=== PATIENT | female | born 1950 | race Caucasian/White ===

== ENCOUNTER 2024-05-11 14:32 | Outpatient (AMB) | payer MEDICARE, OTHER, SELFPAY ==
--- NOTE | 2024-05-11 14:37 | A.OFFPC_ITS ---
Vital Signs 05/11/24 14:51 Height 4 ft 11 in Weight 143 lb BMI 28.9 BP 130/76 Blood Pressure Location Lt brachial Position Sitting Respiration 14 Pulse 92 Pulse Source Pulse Oximeter Temp 98.2 F Temp Source Oral Pulse Oximetry (%) 97 Oxygen Delivery Method Room Air Intake Visit Reasons: LA[facility] from [facility] Intake Note: New patient visit [employer] Required: No Allergies amoxicillin [From Augmentin] Allergy (Severe, Verified 05/11/24 14:45) Burning red skin clavulanic acid [From Augmentin] Allergy (Severe, Verified 05/11/24 14:45) Burning red skin Penicillins Allergy (Severe, Verified 05/11/24 14:45) burning red skin sulfadiazine Allergy (Severe, Verified 05/11/24 14:45) red burning skin Tobacco use date assessed: 05/11/24 Fall risk assessment: 2 + Falls in past year Last assessed Fall Risk: 05/11/24 Dental Screening Dental Screen Date: 05/11/24 Did you have a dental visit in the last 12 months?: Yes Did you have a dental problem in the last 6 months where you did not have access to dental care?: No Was dental information given to patient?: Patient has dentist HPI HPI Comments History of Present Illness Details The patient is a 73-year-old female with past medical history hypertension, hyperlipidemia, GERD, osteoarthritis, recurrent UTI presenting for follow-up CV: On irbesartan, atorvastatin. Denies chest pain, headaches, vision changes 0A: Status post left total knee replacem ent with Dr. Limon-2013. She had a lower extremity DVT in 2013. Right total knee replacement 2021 GI: She is on prilosec daily. Prior EGD with ?brooks. colonoscopy 2022-advised 10 year repeat Urogyn: Follws with dr butt. axonic implant in 2020. continues vesicare, methanimine Td/Tdap 2023 Pneumonia 2023 Shingles 2019 ROS CONSTITUTIONAL: Denies weight loss, fever and chills. HEENT: Denies changes in vision and hearing. Frequent ear eaches RESPIRATORY: Denies SOB and cough. CV: Denies palpitations and CP GI: Denies abdominal pain, nausea, vomiting and diarrhea. : Denies dysuria and urinary frequency. MSK: Denies new myalgia and joint pain. SKIN: Denies rash and pruritus. NEUROLOGICAL: Denies headache PSYCHIATRIC: Denies recent changes in mood. PHYSICAL EXAM: GENERAL: Alert and oriented x 3. NAD EYES: EOMI. Anicteric. HENT: Moist mucous membranes. No scleral icterus. No cervical lymphadenopathy. LUNGS: Clear to auscultation bilaterally. CARDIOVASCULAR: Regular rate and rhythm. No murmur. No JVD. ABDOMEN: Soft, non-tender +bs EXTREMITIES: No edema. Non-tender. SKIN: No rashes or lesions. Warm. NEUROLOGIC: No focal neurological deficits. CN II-XII grossly intact PSYCHIATRIC: Cooperative. Appropriate mood and affect [facility] Medical History Hx of mammogram Osteoarthritis Tennis elbow Recurrent UTI Hypertension Hyperlipidemia History of DVT in adulthood GERD (gastroesophageal reflux disease) Elevated glucose Surgical History History of endoscopy History of colonoscopy Hx of knee surgery History of bladder surgery History of hysterectomy Family History Father Heart attack Brother Heart attack Brother Heart disease (organic) Brother Heart disease (organic) Mother Heart disease (organic) Alzheimer dementia Sister Alzheimer dementia Other Dementia Social History Housing: House Patient Tobacco Use Status: Never used Tobacco e-Cigarette/Vaping Use: Never Used Second Hand Smoke Exposure: No service: No 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 How often do you have a drink containing alcohol?: Monthly or less 2. How many drinks containing alcohol do you have on a typical day when you are drinking?: 1 or 2 3. How often do you have six or more drinks on one occasion?: Never Total Score: 1 Physical exam (Primary Care) Vital Signs: Last Vital Signs Temp 98.2 F 05/11/24 14:51 Pulse 92 05/11/24 14:51 Resp 14 05/11/24 14:51 BP 130/76 05/11/24 14:51 Pulse Ox 97 05/11/24 14:51 Oxygen Delivery Method Room Air 05/11/24 14:51 BMI result Body Mass Index 28.9 Tobacco/Smoking Status: Tobacco use Status Tobacco use date assessed 05/11/24 05/11/24 14:55 Patient Tobacco Use Status Never used Tobacco 05/11/24 14:55 e-Cigarette/Vaping Use Never Used 05/11/24 14:55 Assessment and Plan Assessment & Plan (1) Elevated glucose: Code(s): R73.09 - Other abnormal glucose Plan: monitor labs (2) Hypertension: Code(s): I10 - Essential (primary) hypertension Qualifiers: Hypertension type: primary hypertension Qualified Code(s): I10 - Ess ential (primary) hypertension Plan: blood pressure adequately controlled on current medications Orders: Orders Complete Blood Count Auto Diff 05/11/24 E78.5 - Hyperlipidemia, unspecified, I10 - Essential (primary) hypertension, R73.09 - Other abnormal glucose Comprehensive Met. Panel 05/11/24 E78.5 - Hyperlipidemia, unspecified, I10 - Essential (primary) hypertension, R73.09 - Other abnormal glucose Lipid Panel 05/11/24 E78.5 - Hyperlipidemia, unspecified, I10 - Essential (primary) hypertension, R73.09 - Other abnormal glucose Hemoglobin A1c 05/11/24 E78.5 - Hyperlipidemia, unspecified, I10 - Essential (primary) hypertension, R73.09 - Other abnormal glucose XR knee LT 3V 05/11/24 M25.562 - Pain in left knee, Z96.659 - Presence of unspecified artificial knee joint Medications: New atorvastatin 20 mg PO DAILY 90 tabs 3RF irbesartan 150 mg PO DAILY 90 tabs 3RF 90 days omeprazole 20 mg PO DAILY 90 caps 3RF Coding Level of Care Code Est Pt Level 5 (26287) Diagnoses Elevated glucose R73.09 Primary hypertension I10 Hypertension type: primary hypertension
[2024-05-11 14:51] VITALS: BP 130/76; PULSE 92; RESP 14; TEMP 36.8; O2SAT 97; BMI 28.9
== END 2024-05-11 15:40 | disposition home or self-care (01) ==
PROVIDERS: PCP Internal Medicine; Visit Provider Internal Medicine
DX: R73.09 Other abnormal glucose (principal); I10 Essential (primary) hypertension
CPT/HCPCS: 99214

== ENCOUNTER 2024-05-11 15:33 | Outpatient (REF) | payer MEDICARE, OTHER, SELFPAY ==
[2024-05-11 17:50] LABS: MANUAL DIFF FLAG NO
[2024-05-11 17:58] LABS: Basophils Percent Auto 0.5 % (0-2); Eosinophils Percent Auto 0.5 % (0-4); Hematocrit 43.2 % (37.0-47.0); Hemoglobin 14.2 g/dl (12.0-16.0); Imm Gran Abs Auto 0.01 X10*3/uL (0.00-0.03); Imm Gran Pct Auto 0.2 % (0.0-0.4); Lymphocytes Absolute Auto 2.4 X10*3/uL (1.2-4.9); Lymphocytes Percent Auto 36.8 % (20-40); Mean Corpuscular HGB Conc 32.9 g/dl (31.0-35.0); Mean Corpuscular Hemoglobin 29.2 pg (27.0-33.0); Mean Corpuscular Volume 88.9 fL (80.0-98.0); Monocytes Absolute Auto 0.5 X10*3/uL (0.1-1.2); Monocytes Percent Auto 7.7 % (2-11); Neutrophils Absolute Auto 3.6 x10*3/uL (2.0-8.3); Neutrophils Percent Auto 54.3 % (45-73); Platelet Count 310 X10*3/uL (160-400); Red Blood Count 4.86 X10*6/uL (4.20-5.50); Red Cell Distribution Width 13.2 % (11.0-16.0); White Blood Count 6.5 X10*3/uL (4.8-10.8)
[2024-05-11 18:07] LABS: Alanine Aminotransferase 22 U/L (0-31); Albumin Level 4.4 g/dL (3.5-5.0); Alkaline Phosphatase 73 U/L (39-117); Anion Gap 12 (12-20); Aspartate Amino Transferase 19 U/L (5-31); Bilirubin Total 0.2 mg/dL (0.0-1.0); Blood Urea Nitrogen 24 mg/dL (9-16); Calcium 10.2 mg/dL (8.4-10.2); Carbon Dioxide 30 mmol/L (22-29); Chloride 106 mmol/L (96-108); Cholesterol 210 mg/dL (<200); Estimated Glomerular Filt Rate > 60; Glucose Random 109 mg/dL (60-115); HDL Cholesterol 75 mg/dL (>40); LDL Cholesterol Calculated 115 mg/dL (<100); Sodium 144 mmol/L (135-145); Total Protein 7.1 g/dL (6.5-8.0); Triglycerides 102 mg/dL (<150)
[2024-05-11 18:19] LABS: Estimated Average Glucose 111 mg/dL; Hemoglobin A1c % 5.5 % (<6.0)
== END 2024-05-11 15:34 | disposition home or self-care (01) ==
LOC: HO.WFDLDS 15:33
PROVIDERS: Visit Provider Internal Medicine
DX: I10 Essential (primary) hypertension (principal); E78.5 Hyperlipidemia, unspecified; R73.09 Other abnormal glucose
CPT/HCPCS: 36415; 80053; 80061; 83036; 85025

== ENCOUNTER 2024-05-14 08:42 | Outpatient (REF) | payer MEDICARE, OTHER, SELFPAY ==
--- NOTE | ~2024-05-14 | XR_ITS ---
EXAMINATION: XR KNEE, LEFT CLINICAL INFORMATION: Left knee pain. COMPARISON: None available. TECHNIQUE: AP, sunrise, and lateral views of the left knee. FINDINGS: Total left knee arthroplasty. No hardware fracture. No perihardware lucency to suggest loosening or infection. No osseous fracture. No concerning lytic or blastic osseous lesion. No abnormal soft tissue calcification. No significant joint effusion. XR/XR knee LT 3V IMPRESSION: Total left knee arthroplasty without evidence of complication.
== END 2024-05-14 08:43 | disposition home or self-care (01) ==
LOC: HO.XRAY 08:42
PROVIDERS: PCP Internal Medicine; Visit Provider Internal Medicine
DX: T84.84XA Pain due to internal orthopedic prosthetic devices, implants and grafts, initial encounter (principal); Z96.652 Presence of left artificial knee joint
CPT/HCPCS: 73562

== ENCOUNTER 2024-11-23 08:23 | Outpatient (AMB) | payer MEDICARE, SELFPAY ==
--- NOTE | 2024-11-23 08:32 | A.OFFPC_ITS ---
Vital Signs 11/23/24 08:37 Height 4 ft 11 in Weight 152 lb 8 oz BMI 30.8 BP 110/76 Blood Pressure Location Rt brachial Position Sitting Respiration 14 Pulse 90 Pulse Source Pulse Oximeter Pulse Oximetry (%) 98 Oxygen Delivery Method Room Air Intake Visit Reasons: AWV/physical exam Intake Note: Medical wellness visit Personal Lines Agent Required: No Allergies amoxicillin [From Augmentin] Allergy (Severe, Verified 11/23/24 08:35) Burning red skin clavulanic acid [From Augmentin] Allergy (Severe, Verified 11/23/24 08:35) Burning red skin Penicillins Allergy (Severe, Verified 11/23/24 08:35) burning red skin sulfadiazine Allergy (Severe, Verified 11/23/24 08:35) red burning skin Medication List - Last Reconciled 11/23/24 by Michelle Pendleton MD aspirin 81 mg PO DAILY atorvastatin 20 mg PO DAILY calcium carbonate 1,200 mg PO DAILY irbesartan 150 mg PO DAILY 90 days methenamine hippurate 1 g PO DAILY multivitamin 1 tab PO DAILY omega [id number] oil 1,000 (120-180) mg (Fish Oil) 1 cap PO DAILY omeprazole 20 mg PO DAILY solifenacin 10 mg PO DAILY vibegron (Gemtesa) 75 mg PO DAILY Tobacco use date assessed: 05/11/24 Dental Screening Dental Screen Date: 05/11/24 HPI HPI Comments History of Present Illness Details The patient is a 73-year-old female with past medical history hypertension, hyperlipidemia, GERD, osteoarthritis, recurrent UTI presenting for AWV CV: On irbesartan, atorvastatin. Blood pressure is well controlled. Denies chest pain, headaches, vision changes 0A: Status post left total knee replacem ent with Dr. Limon-2013. She had a lower extremity DVT in 2013. Right total knee replacement 2021. Feeling well. GI: She is on prilosec daily. Prior EGD with ?brooks. colonoscopy 2022-advised 10 year repeat Urogyn: Follws with Dr butt. axonic implant in 2020. continues vesicare, methanimine. Appt in January. Td/Tdap 2023 Pneumonia 2023 Shingles 2018 Mammogram: scheduled this week 11/25/202411/29 memory HRA reviewed Care team updated Medications reconciled Negative fall. Negative depression ROS CONSTITUTIONAL: Denies weight loss, fever and chills. HEENT: Denies changes in vision and hearing. Frequent ear eaches RESPIRATORY: Denies SOB and cough. CV: Denies palpitations and CP GI: Denies abdominal pain, nausea, vomiting and diarrhea. : Denies dysuria and urinary frequency. MSK: Denies new myalgia and joint pain. SKIN: Denies rash and pruritus. NEUROLOGICAL: Denies headache PSYCHIATRIC: Denies recent changes in mood. PHYSICAL EXAM: GENERAL: Alert and oriented x 3. NAD EYES: EOMI. Anicteric. HENT: Moist mucous membranes. No scleral icterus. No cervical lymphadenopathy. LUNGS: Clear to auscultation bilaterally. CARDIOVASCULAR: Regular rate and rhythm. No murmur. No JVD. ABDOMEN: Soft, non-tender +bs EXTREMITIES: No edema. Non-tender. SKIN: No rashes or lesions. Warm. NEUROLOGIC: No focal neurological deficits. CN II-XII grossly intact PSYCHIATRIC: Cooperative. Appropriate mood and affect [facility] Medical History Hx of mammogram Osteoarthritis Tennis elbow Recurrent UTI Hypertension Hyperlipidemia History of DVT in adulthood GERD (gastroesophageal reflux disease) Elevated glucose Surgical History History of endoscopy History of colonoscopy Hx of knee surgery History of bladder surgery History of hysterectomy Family History Father Heart attack Alcoholism Brother Heart attack Alcoholism Brother Heart disease (organic) Brother Heart disease (organic) Mother Heart disease (organic) Alzheimer dementia Sister Alzheimer dementia Other Dementia FH: mental illness Substance abuse Social History (Updated 11/23/24 @ 08:53 by Lilian Granger CMA) Housing: House Patient Tobacco Use Status: Never used Tobacco e-Cigarette/Vaping Use: Never Used Second Hand Smoke Exposure: No Use of substances other than those prescribed or required for medical reasons: No service: No 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 Cognitive needs: No Hearing needs: No Vision needs: No Physical exam (Primary Care) Vital Signs: Last Vital Signs Pulse 90 11/23/24 08:37 Resp 14 11/23/24 08:37 BP 110/76 11/23/24 08:37 Pulse Ox 98 11/23/24 08:37 Oxygen Delivery Method Room Air 11/23/24 08:37 BMI result Body Mass Index 30.8 Tobacco/Smoking Status: Tobacco use Status Tobacco use date assessed 05/11/24 11/23/24 08:34 Patient Tobacco Use Status Never used Tobacco 11/23/24 08:53 e-Cigarette/Vaping Use Never Used 11/23/24 08:53 Coding Level of Care Code Est Pt Level 4 (72571) Diagnoses Annual wellness visit Z00.00 Primary hypertension I10 Hypertension type: primary hypertension Assessment & Plan Assessment & Plan (1) Annual wellness visit: Code(s): Z00.00 - Encounter for general adult medical examination without abnormal findings Category: Medical Plan: HRA reviewed -see HPI (2) Hypertension: Code(s): I10 - Essential (primary) hypertension Category: Medical Qualifiers: Hypertension type: primary hypertension Qualified Code(s): I10 - Essential (primary) hypertension Plan: well controlled on current medication. Low salt diet. Continue daily exercise. Orders: Orders Comprehensive Met. Panel Today E78.5 - Hyperlipidemia, unspecified, I10 - Essential (primary) hypertension, R73.09 - Other abnormal glucose, Z00.00 - Encounter for general adult medical examination without abnormal findings TSH reflex Free T4 Today E78.5 - Hyperlipidemia, unspecified, I10 - Essential (primary) hypertension, R73.09 - Other abnormal glucose, Z00.00 - Encounter for general adult medical examination without abnormal findings Complete Blood Count Auto Diff Today E78.5 - Hyperlipidemia, unspecified, I10 - Essential (primary) hypertension, R73.09 - Other abnormal glucose, Z00.00 - Encounter for general adult medical examination without abnormal findings Lipid Panel Today E78.5 - Hyperlipidemia, unspecified, I10 - Essential (primary) hypertension, R73.09 - Other abnormal glucose, Z00.00 - Encounter for general adult medical examination without abnormal findings Hemoglobin A1c Today R73.09 - Other abnormal glucose Vitamin B12 and Folate Today R20.0 - Anesthesia of skin
[2024-11-23 08:37] VITALS: BP 110/76; PULSE 90; RESP 14; O2SAT 98; BMI 30.8
--- OUTSIDE RECORDS SUMMARY | 2024-11-23 08:45 | XMS_ITS | Data Portability ---
Author Organization [facility], [address] Address [address] [place] [address] Assessment No assessment recorded. Plan of Treatment Reminders Order Date Submit Date Provider Last Modified By Organization Details Last Modified Time Details Appointments None recorded. Lab None recorded. Referral otolaryngol ogist referral - dizziness with ear pain, feels like crackling sound inside . hx of frequent ear infections 2023 024 [address] Petar Esquivel MD, [address] [facility], [facility] [address], [place], [address], 15:43:30 Procedures None recorded. Surgeries None recorded. Imaging None recorded. Medication Orders Zithromax Z-Wyatt 250 mg tablet 2023 024 [id number], [address] [place], [address], 15:38:26 Patient TargetsNo targets recorded. 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 hx of frequent ear infections Referring Physician: Janett Yeh, Urgent Care, Encounter Date: 02/11/2024 Problems Name Problem SNOMED Code Status Onset Date Resolution Date Notes Provider Name and Address Organization Details Recorded Time Hypertensive disorder 31708130 Active 2023 Meghna del angel, PA - [facility] 4 14:20:38 Incontinence 89469158 Active 2023 Meghna Bernal null, PA - [facility] 4 14:20:43 Hypercholester olemia 74873268 Active 2023 Meghna Bernal null, PA - [facility] 4 14:21:01 Acute left otitis media 280230973 Active 2023 Janett Yeh NP [address] , [place], [address], PA - [facility] 4 15:33:10 Eustachian tube disorder 26185265 Active 2023 Janett Yeh NP [address] [place], [address], PA - [facility] 4 15:40:33 Problem Notes None recorded. Procedures Surgical History Date Name Laterality Status Provider Name and Address Organization Details Recorded Time hysterectomy completed Meghna Richmondnton PA - [facility] 02/11/2024 14:22:35 total knee replacement completed Meghna Richmondnton PA - [facility] 02/11/2024 14:22:45 procedure on urinary bladder completed Meghna Richmondnton PA - [facility] 02/11/2024 14:22:51 procedure on elbow completed Meghnadariel Richmondnton PA - [facility] 02/11/2024 14:23:00 Imaging Results None recorded. Procedure Notes None recorded. Medical Equipment None Reported. Allergies Allergen ID Allergen Name Allergen Category Reaction Reaction Severity Criticality Documentation Date Start Date Code Code System Note Provider Name and Address Organization Details Recorded Time 206006 amoxicill in medicatio n rash Not available Not available 02/11/2024 723 RxNorm Meghna del angel, PA - [facility] 4 14:15:24 [id number] Substance with sulfonami de structure and antibacte rial mechanism of action (substanc e) medicatio n rash Not available Not available 02/11/2024 56912 8003 SNOMED VARINDER Ordonez [facility] 4 14:16:10 Medications Name Sig Start Date Stop Date Status Note LastModified by Organization Details LastModified Time atorvastatin 20 mg tablet Take 1 tablet every day by oral route. active Not Available Not Available No t Available Zithromax Z-Wyatt 250 mg tablet TAKE 2 TABLETS (500 MG) BY ORAL ROUTE ONCE DAILY FOR 1 DAY THEN 1 TABLET (250 MG) BY ORAL ROUTE ONCE DAILY FOR 4 DAYS 2023 active Not Available Not Available Not Avai lable Baby Aspirin 81 mg chewable tablet Chew 1 tablet every day by oral route. active Not Available Not Available No t Available irbesartan 150 mg tablet Take 1 tablet every day by oral route. active Not Available Not Available No t Available omeprazole 20 mg oral packet Take by oral route. active Not Available Not Available No t Available solifenacin 10 mg tablet Take 1 tablet every day by oral route. active Not Available Not Available No t Available Vitamin C active Not Available Not Jessenia ilable Not Available methenamine active Not Available Not A vailable Not Available Vitamin D3 active Not Available Not Av ailable Not Available Multi Vitamin active Not Available Not Available Not Available calcium 1,000 mg (as calcium carbonate 2,500 mg) effervescent tablet Take by oral route. active Not Available Not Available No t Available Vitals Date Recorded Body height Body mass index (BMI) Body weight Respiratory rate Pain severity - 0-10 verbal numeric rating [Score] - Reported Heart rate Oxygen saturation Oxygen saturation in Arterial blood by Pulse oximetry Body temperature Systolic blood pressure Diastolic blood pressure Provider Name and Address Organization Details Last Updated DateTime 4 149.86 cm 29.3 kg/m2 77341.8 9 g 18 /min 8 77 /min 97 % 97 % 97.4 [degF] 132 mm[Hg] 83 mm[Hg] Meghna Pitts [facility] 4 14:25:22 Social History Question Answer Notes LastModified by Organizat ion Details LastModified Time Tobacco Smoking Status Never Smoker Meghna del angel PA - [facility] 02/11/2024 14:21:56 What Is Your Level Of Alcohol Consumption? Occasional [email or web address] Information not available 02/11/2024 How Many Times Per Week Do You Consume Alcohol? Less Than 1 Time Per Week [email or web address] Information not available 02/11/2024 Are You Currently Employed? Yes [email or web address] Information not available 02/11/2024 What Is The Highest Grade Or Level Of School You Have Completed Or The Highest Degree You Have Received? [id number] [email or web address] Information not available 02/11/2024 Have You Had A Flu Shot This Season? Yes [email or web address] Information not available 02/11/2024 If No, Would You Like A Flu Shot Today? No [email or web address] Information not available 02/11/2024 Have You Had Direct Contact, Or Contact During Intimacy, With Monkeypox Rash, Scabs, Or Body Fluids From A Person With Monkeypox? No Information not available 02/11/2024 What Was The Date Of Your Most Recent Tobacco Screening? 02/11/2024 [email or web address] Information not available 02/11/2024 Do You Use Any Illicit Or Recreational Drugs? No Information not available 02/11/2024 Have You Recently Traveled Abroad? Yes [place] [email or web address] Information not available 02/11/2024 Are You Currently In School? No [email or web address] Information not available 02/11/2024 Do You Or Have You Ever Used Any Other Forms Of Tobacco Or Nicotine? No [email or web address] Information not available 02/11/2024 Sex: Unknown Functional Status None recorded. Mental Status None recorded. Family History Nothing Reported. Medical History No medical history recorded. Gynecological HistoryNo gynecological history recorded. Obstetrics History GPAL:G 0 P 0 0 0 0 Immunizations Vaccine Type Date Status Note Provider Nam e and Address Organization Details Recorded Time zoster recombinant 9 completed Meghna del angel PA - [facility] 02/11/2024 14:15:09 zoster recombinant 9 completed Meghna del angel PA - [facility] 02/11/2024 14:15:09 Influenza, high-dose, quadrivalent, PF 0 completed Meghna Bernal null, PA - [facility] 02/11/2024 14:15:09 Influenza, high-dose, quadrivalent, PF 1 completed Meghna Bernal null, PA - [facility] 02/11/2024 14:15:09 Influenza, high-dose, quadrivalent, PF 3 completed Meghna Bernal null, PA - [facility] 02/11/2024 14:15:09 Influenza, high-dose, quadrivalent, PF 2 completed Meghna Bernal null, PA - [facility] 02/11/2024 14:15:09 COVID-19, mRNA, LNP-S, PF, 100 mcg/0.5mL dose or 50 mcg/0.25mL dose 1 completed Meghna Bernal null, PA - [facility] 02/11/2024 14:15:09 COVID-19, mRNA, LNP-S, PF, 100 mcg/0.5mL dose or 50 mcg/0.25mL dose 1 completed Meghna Bernal null, PA - [facility] 02/11/2024 14:15:09 COVID-19, mRNA, LNP-S, PF, 100 mcg/0.5mL dose or 50 mcg/0.25mL dose 1 completed Meghna Bernal null, PA - [facility] 02/11/2024 14:15:09 Pneumococcal conjugate PCV20, polysaccharide [id number] conjugate, adjuvant, PF 4 completed Meghna Bernal null, PA - [facility] 02/11/2024 14:15:09 Tdap 4 completed Meghna Bernal null, PA - [facility] 02/11/2024 14:15:09 Pneumococcal conjugate PCV 13 8 completed Meghna Bernal null, PA - [facility] 02/11/2024 14:15:09 Influenza, high-dose, trivalent, PF 7 completed Meghna Richmondnton mer, PA - [facility] 02/11/2024 14:15:09 Influenza, high-dose, trivalent, PF 8 completed Meghna del angel, PA - [facility] 02/11/2024 14:15:09 Past Encounters Encounter ID Performer Location Encounter Start Date Encounter Closed Date Diagnosis/Indication Diagnosis SNOMED-CT Code Diagnosis ICD10 Code Diagnosis Note [id number] [address] [facility] [address] [facility] [place] [address] 11/27/2021 12:40:41 11/27/2021 14:25:05 [id number] Janett Yeh, ASPEN [address] [facility] [address] [facility] [place] [address] 02/11/2024 12:17:52 02/11/2024 15:40:18 Acute left otitis media 494539250 H66.92 Based on your Presentati on, Exam, and Lab Testing you are being diagnosed with otitis media I am going to prescribe you and antibiotic to cover this infection. Please be sure to complete the full course of this antibiotic to prevent antibiotic resistance . It is also important to complete this antibiotic because this infection is what causes Scarlet Fever/Rheu matic Heart Disease. Antibiotic s will typically take 4-5 days to start to work with symptom improvemen t. The following are my other recommenda tions to help with symptoms and is important for this diagnosis: 1. Take Ibuprofen or Tylenol if you do not have any allergies to these medication s. If you take a blood thinner you should not take NSAIDS like Ibuprofen. These medication will help with the inflammati on in your respirator y tract which should help the cough. (I would alternate between Tylenol 650 mg and your Ibuprofen 600 mg every 4 hours)2. Do not take any Cold Medication s that have a Decongesta nt in it - this will dry out your throat and make the sore throat worse.3. Drinking Hot Tea with honey can help coat and soothe your throat. I would be seen again if you develop any of the following symptoms.1 . Fever > 101.02. Stiff neck - where you can't turn your neck3. Trouble swallowing your saliva - drooling4. Swelling of a lymph node in your throat that is painful to touch5. Difficulty breathing6 . Severe Headache Thank you for using [facility] today, please feel free to contact our office if you have any questions or concerns. Eustachian tube disorder [id number] H69.92 Try a simple exercise to help open blocked tubes. Close your mouth, hold your nose, and gently blow as if you are blowing your nose. Yawning and chewing gum also may help. You may hear or feel a pop when the tubes open.To ease ear pain, apply a warm washcloth or a heating pad set on low. There may be some drainage from the ear when the heat melts earwax. Put a cloth between the heat source and your skin.If your doctor prescribed antibiotic s, take them as directed. Do not stop taking them just because you feel better. You need to take the full course of antibiotic s.Be safe with medicines. Depending on the cause of the problem, your doctor may recommend over-the-c ounter medicine. For example, adults may try decongesta nts for cold symptoms or nasal spray steroids for allergies. Follow the instructio ns carefully. Be careful with cough and cold medicines. Don't give them to children younger than 6, because they don't work for children that age and can even be harmful. For children 6 and older, always follow all the instructio ns carefully. Make sure you know how much medicine to give and how long to use it. And use the dosing device if one is included.W hen should you call for help?Call your doctor now or seek immediate medical care if:You develop sudden, complete hearing loss.You have severe pain or feel dizzy.You have new or increasing pus or blood draining from your ear.You have redness, swelling, or pain around or behind the ear. Health Concerns Section Related Observation LastModified by Organization Detai ls LastModified Time None Recorded Concern Status LastModified by Organization Details LastModified Time None Recorded Advance Directives Directive None Recorded Payers Encounter Date Sequence Insurance Name Policy Number Policy Medeiros Covered Member ID Medeiros Member ID Guarantor Name 11/27/2021 1 [place] [employer] Irina Edward [id number] Irina Edward 11/27/2021 2 [facility] [id number] Jorge Edward [id number] Irina Harding Wagner 02/11/2024 1 [place] [facility] Irina Edward [id number] Irina Harding Wagner 02/11/2024 2 [facility] [id number] 2 Jorge Lindo Wagner [id number] Irina Funezonte Notes Date Note Type Note Provider Name and Address Organization Details Recorded Time 4 text/html Ear problem UCReported bypatient.source of patient informationInformation obtained from patient; Patient arrived at Urgent Care ambulatory Location:left Quality:pain;clogged Severity:moderate Duration:started ; 3 days Context:no recent swimming/water in ear; no recent air travel Modifying Factors:does not hurt to lie on, or pull on ear; does not hurt to chew Associated Symptoms:popping noise in the ears Pt complains of dizziness x 2 weeks. Pt also complaining of intermittent left ear pain x 3 days Janett Yeh NP [address] [facility] [place], [address], PA - [facility] 03/15/2024 10:32:56 OBGyn Episode No OBEpisode recorded.
== END 2024-11-23 09:06 | disposition home or self-care (01) ==
PROVIDERS: PCP Internal Medicine; Visit Provider Internal Medicine
DX: Z00.00 Encounter for general adult medical examination without abnormal findings (principal); I10 Essential (primary) hypertension

== ENCOUNTER 2024-11-23 09:08 | Outpatient (REF) | payer MEDICARE, SELFPAY ==
[2024-11-23 11:30] LABS: MANUAL DIFF FLAG NO
[2024-11-23 11:34] LABS: Basophils Percent Auto 0.7 % (0-2); Eosinophils Absolute Auto 0.1 X10*3/uL (0.0-0.4); Eosinophils Percent Auto 0.8 % (0-4); Hematocrit 43.3 % (37.0-47.0); Hemoglobin 14.5 g/dl (12.0-16.0); Imm Gran Abs Auto 0.01 X10*3/uL (0.00-0.03); Imm Gran Pct Auto 0.2 % (0.0-0.4); Lymphocytes Absolute Auto 2.6 X10*3/uL (1.2-4.9); Lymphocytes Percent Auto 43.4 % (20-40); Mean Corpuscular HGB Conc 33.5 g/dl (31.0-35.0); Mean Corpuscular Hemoglobin 29.4 pg (27.0-33.0); Mean Corpuscular Volume 87.8 fL (80.0-98.0); Mean Platelet Volume 10.5 fL (9.4-12.3); Monocytes Absolute Auto 0.5 X10*3/uL (0.1-1.2); Monocytes Percent Auto 8.8 % (2-11); Neutrophils Absolute Auto 2.7 x10*3/uL (2.0-8.3); Neutrophils Percent Auto 46.1 % (45-73); Platelet Count 295 X10*3/uL (160-400); Red Blood Count 4.93 X10*6/uL (4.20-5.50); Red Cell Distribution Width 12.9 % (11.0-16.0); White Blood Count 5.9 X10*3/uL (4.8-10.8)
[2024-11-23 12:04] LABS: Estimated Average Glucose 117 mg/dL; Hemoglobin A1C 148.1789 umol/L; Hemoglobin A1c % 5.7 % (<6.0); Total Hemoglobin (HGBA1C) 3783.8514 umol/L
[2024-11-23 12:19] LABS: Alanine Aminotransferase 38 U/L (0-31); Albumin Level 4.3 g/dL (3.5-5.0); Alkaline Phosphatase 79 U/L (39-117); Anion Gap 11 (12-20); Aspartate Amino Transferase 28 U/L (5-31); Bilirubin Total 0.3 mg/dL (0.0-1.0); Blood Urea Nitrogen 17 mg/dL (9-16); Calcium 9.9 mg/dL (8.4-10.2); Carbon Dioxide 28 mmol/L (22-29); Chloride 108 mmol/L (96-108); Cholesterol 193 mg/dL (<200); Estimated Glomerular Filt Rate > 60; Glucose Random 107 mg/dL (60-115); HDL Cholesterol 72 mg/dL (>40); LDL Cholesterol Calculated 86 mg/dL (<100); Potassium 4.2 mmol/L (3.3-5.1); Sodium 143 mmol/L (135-145); Total Protein 7.3 g/dL (6.5-8.0); Triglycerides 177 mg/dL (<150)
[2024-11-23 12:35] LABS: TSH reflex Free T4 2.18 uIU/mL (0.32-4.0)
[2024-11-23 12:41] LABS: Folate > 20.0 ng/mL (> or = 4.0); Vitamin B12 794 pg/mL (200-900)
== END 2024-11-23 09:09 | disposition home or self-care (01) ==
LOC: HO.WFDLDS 09:08
PROVIDERS: Visit Provider Internal Medicine
DX: Z00.00 Encounter for general adult medical examination without abnormal findings (principal); R73.09 Other abnormal glucose; E78.5 Hyperlipidemia, unspecified; I10 Essential (primary) hypertension; R20.0 Anesthesia of skin
CPT/HCPCS: 36415; 80053; 80061; 82607; 82746; 83036; 84443; 85025; 99212

== ENCOUNTER 2025-05-23 13:57 | Outpatient (AMB) | payer MEDICARE, OTHER, SELFPAY ==
--- NOTE | 2025-05-23 14:03 | A.OFFPC_ITS ---
Vital Signs 05/23/25 14:08 Height 4 ft 11 in Weight 146 lb 6 oz BMI 29.6 BP 130/74 Blood Pressure Location Lt brachial Position Sitting Respiration 14 Pulse 81 Pulse Source Pulse Oximeter Pulse Oximetry (%) 97 Oxygen Delivery Method Room Air Intake Visit Reasons: bp follow up Intake Note: Blood pressure follow up Deicer Tester Required: No Allergies amoxicillin (From Augmentin) Allergy (Severe, Verified 05/23/25 14:06) Burning red skin clavulanic acid (From Augmentin) Allergy (Severe, Verified 05/23/25 14:06) Burning red skin Penicillins Allergy (Severe, Verified 05/23/25 14:06) burning red skin sulfadiazine Allergy (Severe, Verified 05/23/25 14:06) red burning skin Tobacco use date assessed: 05/23/25 Fall risk assessment: No Falls in past year Last assessed Fall Risk: 05/23/25 Dental Screening Dental Screen Date: 05/23/25 Did you have a dental visit in the last 12 months?: Yes Did you have a dental problem in the last 6 months where you did not have access to dental care?: No Was dental information given to patient?: Patient has dentist HPI HPI Comments History of Present Illness Details The patient is a 74-year-old female with past medical history hypertension, hyperlipidemia, GERD, osteoarthritis, recurrent UTI presenting for follow up CV: On irbesartan, atorvastatin. Blood pressure is well controlled. Denies chest pain, headaches, vision changes OA: stable. Status post left total knee replacement with Dr. Limon-2013. She just completed physical therapy for left knee tendonitis. She had a lower extremity DVT in 2013. Right total knee replacement 2021. GI: She is on prilosec daily. Prior EGD with ?brooks. colonoscopy 2022-advised 10 year repeat Urogyn: Follws with Dr butt. axonic implant in 2020. continues vesicare, methanimine. Appt in January. Td/Tdap 2023 Pneumonia 2023 Shingles 2018 Mammogram: 11/25/2024 ROS CONSTITUTIONAL: Denies weight loss, fever and chills. HEENT: Denies changes in vision and hearing. Frequent ear eaches RESPIRATORY: Denies SOB and cough. CV: Denies palpitations and CP GI: Denies abdominal pain, nausea, vomiting and diarrhea. : Denies dysuria and urinary frequency. MSK: Denies new myalgia and joint pain. SKIN: Denies rash and pruritus. NEUROLOGICAL: Denies headache PSYCHIATRIC: Denies recent changes in mood. PHYSICAL EXAM: GENERAL: Alert and oriented x 3. NAD EYES: EOMI. Anicteric. HENT: Moist mucous membranes. No scleral icterus. No cervical lymphadenopathy. LUNGS: Clear to auscultation bilaterally. CARDIOVASCULAR: Regular rate and rhythm. No murmur. No JVD. ABDOMEN: Soft, non-tender +bs EXTREMITIES: No edema. Non-tender. SKIN: No rashes or lesions. Warm. NEUROLOGIC: No focal neurological deficits. CN II-XII grossly intact PSYCHIATRIC: Cooperative. Appropriate mood and affect [facility] Medical History Hx of mammogram Osteoarthritis Tennis elbow Recurrent UTI Hypertension Hyperlipidemia History of DVT in adulthood GERD (gastroesophageal reflux disease) Elevated glucose Surgical History History of endoscopy History of colonoscopy Hx of knee surgery History of bladder surgery History of hysterectomy Family History Father Heart attack Alcoholism Brother Heart attack Alcoholism Brother Heart disease (organic) Brother Heart disease (organic) Mother Heart disease (organic) Alzheimer dementia Sister Alzheimer dementia Other Dementia FH: mental illness Substance abuse Social History (Updated 11/23/24 @ 08:53 by Lilian Granger CMA) Housing: House Patient Tobacco Use Status: Never used Tobacco e-Cigarette/Vaping Use: Never Used Second Hand Smoke Exposure: No service: No 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 1. Little interest or pleasure in doing things: not at all 2. Feeling down, depressed, or hopeless: not at all 3. Trouble falling or staying asleep, or sleeping too much: not at all 4. Feeling tired or having little energy: not at all 5. Poor appetite or overeating: not at all 6. Feeling bad about yourself - or that you are a failure or have let yourself or your family down: not at all 7. Trouble concentrating on things, such as reading the newspaper or watching television: not at all 8. Moving or speaking so slowly that other people could have noticed. Or the opposite - being so fidgety or restless that you have been moving around a lot more than usual: not at all 9. Thoughts that you would be better off or of hurting yourself in some way: not at all Total score: 0 Source: Developed by Drs. Talat Stern, Magy Green, Kam mccracken nd colleagues, with an educational lupillo from [employer]. Thrive Questionnaire Date Thrive assessed: 05/16/25 I am a: Patient What is your living situation today?: I have a steady place to live Within the past 12 months, did the food you bought not last and you didn't have the money to get more?: Never true Within the past 12 months, did you worry whether your food would run out before you got money to buy more?: Never true Do you have trouble paying for medicines?: No Do you have trouble getting transportation to medical appointments?: No Do you have trouble paying your heating and electricity bill?: No Do you have trouble taking care of your child, family member or friend?: No Do you have trouble with day-to-day activities such as bathing, preparing meals, shopping, managing finances, etc.?: No Are you currently unemployed and looking for a job?: No Are you interested in more education?: No Please select the resources that you would like help with: None Currently or been in a relationship where the following occur: No concerns reported THRIVE Score: 0 AUDIT C Alcohol Use Questionnaire (AUDIT-C) 1. How often do you have a drink containing alcohol?: 2-4 times a month 2. How many drinks containing alcohol do you have on a typical day when you are drinking?: 1 or 2 3. How often do you have six or more drinks on one occasion?: Never Total Score: 2 WESTON-7 AMB Questionnaire WESTON-7 Feeling nervous, anxious, or on edge: 0 = Not at all Not being able to stop or control worryin = Not at all Worrying too much about different things: 0 = Not at all Trouble relaxin = Not at all Being so restless that it is hard to sit still: 0 = Not at all Becoming easily annoyed or irritable: 0 = Not at all Feeling afraid as if something awful might happen: 0 = Not at all Total WESTON-7 score (0-4 normal; 5-9 mild; 10-14 moderate; 15-21 severe): 0 Source: Developed by Drs. Talat Stern, Magy Green, Kam Rosario and colleagues, with an educational lupillo from [employer]. Physical exam (Primary Care) Vital Signs: Last Vital Signs Pulse 81 05/23/25 14:08 Resp 14 05/23/25 14:08 BP 130/74 05/23/25 14:08 Pulse Ox 97 05/23/25 14:08 Oxygen Delivery Method Room Air 05/23/25 14:08 BMI result Body Mass Index 29.6 Tobacco/Smoking Status: Tobacco use Status Tobacco use date assessed 05/23/25 05/23/25 14:10 Patient Tobacco Use Status Never used Tobacco 05/23/25 14:10 e-Cigarette/Vaping Use Never Used 05/23/25 14:10 PHQ-9: PHQ-9 Score PHQ-9: Total score 0 05/23/25 14:16 Thrive Assessment: Date of Thrive Assessment Date Thrive assessed 05/16/25 05/23/25 14:10 Currently or been in a relationship where the following occur: No concerns reported Coding Level of Care Code Est Pt Level 4 (74190) Diagnoses Primary hypertension I10 Hypertension type: primary hypertension Hyperlipidemia, unspecified hyperlipidemia type E78.5 Hyperlipidemia type: unspecified Elevated glucose R73.09 Assessment & Plan Assessment & Plan (1) Hypertension: Code(s): I10 - Essential (primary) hypertension Category: Medical Qualifiers: Hypertension type: primary hypertension Qualified Code(s): I10 - Ess ential (primary) hypertension (2) Hyperlipidemia: Code(s): E78.5 - Hyperlipidemia, unspecified Category: Medical Qualifiers: Hyperlipidemia type: unspecified Qualified Code(s): E78.5 - Hyperlipidemia, unspecified (3) Elevated glucose: Code(s): R73.09 - Other abnormal glucose Category: Medical Plan 74 year old female presenting for follow up bp well controlled UI/OAB-stable Labs ordered Orders: Orders Complete Blood Count Auto Diff 5 Months E66.9 - Obesity, unspecified, E78.5 - Hyperlipidemia, unspecified, I10 - Essential (primary) hypertension, R73.09 - Other abnormal glucose Comprehensive Met. Panel 5 Months E66.9 - Obesity, unspecified, E78.5 - Hyperlipidemia, unspecified, I10 - Essential (primary) hypertension, R73.09 - Other abnormal glucose Lipid Panel 5 Months E66.9 - Obesity, unspecified, E78.5 - Hyperlipidemia, unspecified, I10 - Essential (primary) hypertension, R73.09 - Other abnormal glucose Hemoglobin A1c 5 Months E66.9 - Obesity, unspecified, E78.5 - Hyperlipidemia, unspecified, I10 - Essential (primary) hypertension, R73.09 - Other abnormal glucose
[2025-05-23 14:08] VITALS: BP 130/74; PULSE 81; RESP 14; O2SAT 97; BMI 29.6
== END 2025-05-23 14:28 | disposition home or self-care (01) ==
LOC: HO.HMCFM 13:58
PROVIDERS: PCP Internal Medicine; Visit Provider Internal Medicine
DX: I10 Essential (primary) hypertension (principal); E78.5 Hyperlipidemia, unspecified; R73.09 Other abnormal glucose

== ENCOUNTER → 2025-05-23 13:57 | Outpatient (BNVA) | payer MEDICARE, OTHER, SELFPAY | PROVIDERS: PCP Internal Medicine; Visit Provider Internal Medicine | DX: I10 Essential (primary) hypertension (principal); E78.5 Hyperlipidemia, unspecified; R73.09 Other abnormal glucose; K21.9 Gastro-esophageal reflux disease without esophagitis; Z79.899 Other long term (current) drug therapy; Z96.653 Presence of artificial knee joint, bilateral; Z13.30 Encounter for screening examination for mental health and behavioral disorders, unspecified | CPT/HCPCS: 96127; 99212 ==